=== PATIENT | female | born 1995 | race Caucasian/White ===

== ENCOUNTER 2017-09-25 20:05 | Emergency (ER) | payer OTHER ==
[2017-09-25 20:47] VITALS: BP 118/85
--- NOTE | 2017-09-25 21:34 | UC ---
Skin Complaint HPI - HPI Summary HPI Summary: Patient presents with complaints of sore throat last night, which has resolved, followed by a rash on her face, and not it is spreading to her arms, and truck. she states she took beanery and the rash improved, and when the Benadryl wore off the rash came back. She denies any difficulty breathing, speaking or swallowing. She denies any fever, chills, chest or abdominal pain, nausea, vomiting, or diarrhea. - History of Current Complaint Hx Obtained From: Patient Hx Last Menstrual Period: <1 WEEK AGO Onset/Duration: Sudden Onset Skin Exposure Onset/Duration: Hours Ago Onset Severity: Mild Current Severity: Mild Pain Intensity: 0 Location: Diffuse, Face, Other - fore arms, back and trunk Character: Pruritus Aggravating Factor(s): Showering, Touch Alleviating Factor(s): Nothing Associated Signs & Symptoms: Positive: Rash <Radha Escobar - Last Filed: 09/25/17 21:57> <Monique Resendiz - Last Filed: 09/25/17 23:16> - History of Current Complaint Chief Complaint: UCSkin Time Seen by Provider: 09/25/17 21:21 Stated Complaint: HIVES - Allergy/Home Medications Allergies/Adverse Reactions: Allergies Allergy/AdvReac Type Severity Reaction Status Date / Time MS Escitalopram Allergy Unknown Verified 09/25/17 20:47 [From Lexapro] Reaction Details Home Medications: Home Medications Diphenhydramine HCl [Benadryl Allergy Child 12.5 MG/5 ML LIQ] 2.5 tbsp PO PRN [History] Nuvaring* 09/25/17 [History] Review of Systems Constitutional: Negative Skin: Rash Eyes: Negative ENT: Negative Respiratory: Negative Cardiovascular: Negative Gastrointestinal: Negative Genitourinary: Negative Motor: Negative Neurovascular: Negative Musculoskeletal: Negative Neurological: Negative Psychological: Negative Is Patient Immunocompromised?: No All Other Systems Reviewed And Are Negative: Yes <Radha Escobar - Last Filed: 09/25/17 21:57> PMH/Surg Hx/FS Hx/Imm Hx Previously Healthy: Yes - Surgical History Surgical History: None - Family History Known Family History: Positive: None Family History: R & n/C - Social History Occupation: Student Lives: With Family Alcohol Use: Occasionally Substance Use Type: None Smoking Status (MU): Never Smoked Tobacco - Immunization History Vaccination Up to Date: Yes <Radha Escobar - Last Filed: 09/25/17 21:57> Physical Exam Triage Information Reviewed: Yes Appearance: Well-Appearing Vital Signs: Initial Vital Signs Temp 98.4 F 09/25/17 20:43 Pulse 83 09/25/17 20:43 Resp 16 09/25/17 20:43 BP 118/85 09/25/17 20:43 Pulse Ox 99 09/25/17 20:43 Vital Signs Reviewed: Yes Eye Exam: Normal ENT Exam: Normal Neck exam: Normal Neck: Positive: 1 Respiratory Exam: Normal Cardiovascular Exam: Normal Abdominal Exam: Normal Musculoskeletal Exam: Normal Neurological Exam: Normal Psychological Exam: Normal Skin Exam: Normal, Other - rough rash lace like in appearance, blanchable. no vesicles on face, forearms, to lesser degree on trunk and back. <Radha Escobar - Last Filed: 09/25/17 21:57> Vital Signs: Initial Vital Signs Temp 98.4 F 09/25/17 20:43 Pulse 83 09/25/17 20:43 Resp 16 09/25/17 20:43 BP 118/85 09/25/17 20:43 Pulse Ox 99 09/25/17 20:43 <Monique Resendiz - Last Filed: 09/25/17 23:16> Course/Dx - Course Course Of Treatment: Patient presents with a rash that developed one day after a sore throat. Rapid strep was negative. I feel based on the clinical presentation that the rash is most likely due to viral exanthum. I gave the patient prednisone 20 mg by mouth in the clinic, and RX prednisone 20 mg by mouth twice daily for five days. If the rash does not imrpove as anticpated she was told to follow up with her PCP. She verbalized understanding of and was in agreement with the discharge plan. - Differential Diagnoses - Skin Complaint Differential Diagnoses: Other - viral exanthum - Diagnoses Provider Diagnoses: viral exanthum <Radha Escobar - Last Filed: 09/25/17 21:57> Discharge <Radha Escobar - Last Filed: 09/25/17 21:57> <Monique Resendiz - Last Filed: 09/25/17 23:16> - Discharge Plan Condition: Stable Disposition: HOME Prescriptions: predniSONE TAB* [Deltasone TAB*] 20 mg PO BID #10 tab Patient Education Materials: Viral Exanthem (ED) Referrals: Prerna Suggs MD [Primary Care Provider] - Attestation Statement User Type: Provider - I was available for consult. This patient was seen by the MARISSA. The patient was not presented to, seen by, or examined by me. -Stephany <Monique Resendiz - Last Filed: 09/25/17 23:16>
[2017-09-25] MEDS ORDERED: predniSONE TAB* 20 MG PO ONE (22:05)
== END 2017-09-25 22:10 | disposition home or self-care (01) ==
LOC: UCEAST 20:05
DX: B09 Unspecified viral infection characterized by skin and mucous membrane lesions (principal)
CPT/HCPCS: 87651; 99212; G0463; J7512

== ENCOUNTER 2017-10-06 13:33 | Emergency (ER) | payer OTHER ==
[2017-10-06 16:14] VITALS: BP 103/74
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
== END 2017-10-06 16:44 | disposition home or self-care (01) ==
LOC: UCEAST 13:33
DX: L25.9 Unspecified contact dermatitis, unspecified cause (principal); Z88.8 Allergy status to other drugs, medicaments and biological substances
CPT/HCPCS: 99212; G0463

== ENCOUNTER 2017-11-06 09:24 | Emergency (ER) | payer OTHER ==
[2017-11-06 09:43] VITALS: BP 101/66
--- NOTE | 2017-11-06 10:12 | UC ---
Throat Pain/Nasal Maurice HPI - HPI Summary HPI Summary: Pt presents with sore throat and post nasal drip that began yesterday. Has also had some sinus congestion. Says that she gets strep throat every year and this feels the same. Is able to eat, drink, and swallow without difficulties. Denies fever, chills, SOB, chest pain, abdominal pain. - History of Current Complaint Hx Obtained From: Patient Hx Last Menstrual Period: 2 WEEKS AGO Onset/Duration: Sudden Onset Severity: Moderate Pain Intensity: 5 Pain Scale Used: 0-10 Numeric <Eddie Christopher - Last Filed: 11/06/17 10:53> <Ijeoma Dove - Last Filed: 11/06/17 15:19> - History of Current Complaint Chief Complaint: UCDizziness Stated Complaint: DIZZINESS Time Seen by Provider: 11/06/17 10:03 - Allergies/Home Medications Allergies/Adverse Reactions: Allergies Allergy/AdvReac Type Severity Reaction Status Date / Time escitalopram [From Lexapro] Allergy Unknown Verified 11/06/17 09:43 Reaction Details Home Medications: Home Medications Dm/Acetaminophen/Doxylamine [Vicks Nyquil Cold & Flu N 15-6.25-325 mg] 1 cap PO 11/06/17 [History] LoraTADine TAB(NF) [Claritin 10 MG TAB(NF)] 10 mg PO DAILY 11/06/17 [History Confirmed 11/06/17] PMH/Surg Hx/FS Hx/Imm Hx - Additional Past Medical History Additional PMH: Allergies Previously Healthy: Yes - Surgical History Surgical History: None - Family History Known Family History: Positive: None Negative: Hypertension Family History: R & n/C - Social History Occupation: Employed Full-time Lives: With Family Alcohol Use: Occasionally Substance Use Type: None Smoking Status (MU): Never Smoked Tobacco - Immunization History Vaccination Up to Date: Yes <Eddie Christopher - Last Filed: 11/06/17 10:53> Review of Systems Constitutional: Negative Skin: Negative Eyes: Negative ENT: Sore Throat, Nasal Discharge Respiratory: Negative Cardiovascular: Negative Gastrointestinal: Negative Neurological: Negative Psychological: Negative All Other Systems Reviewed And Are Negative: Yes <Eddie Christopher - Last Filed: 11/06/17 10:53> Physical Exam - Summary Physical Exam Summary: GENERAL: NAD. WDWN. No pain distress. SKIN: No rashes, sores, ulcers, masses, lesions. HEENT: Head: AT/NC Eyes: Conjunctiva clear without inflammation or discharge. Ears: Hearing grossly normal. TMs intact, no bulging, erythema, or edema. Nose: Nasal mucosa pink and moist. NTTP maxillary and frontal sinus. Throat: Posterior oropharynx mild erythema. No tonsillar enlargement. No exudates. Uvula midline. No hoarse voice or muffled voice. NECK: Supple. Nontender. No lymphadenopathy. CHEST: CTAB. No r/r/w. No accessory muscle use. Breathing comfortably and in no distress. CV: RRR. Without m/r/g. Pulses intact. Brisk cap refill. NEURO: Alert. CN II-XII grossly intact. PSYCH: Age appropriate behavior. Triage Information Reviewed: Yes Vital Signs: Initial Vital Signs Temp 98.7 F 11/06/17 09:37 Pulse 86 11/06/17 09:37 Resp 18 11/06/17 09:37 BP 101/66 11/06/17 09:37 Pulse Ox 99 11/06/17 09:37 <Eddie Christopher - Last Filed: 11/06/17 10:53> Vital Signs: Initial Vital Signs Temp 98.7 F 11/06/17 09:37 Pulse 86 11/06/17 09:37 Resp 18 11/06/17 09:37 BP 101/66 11/06/17 09:37 Pulse Ox 99 11/06/17 09:37 <Ijeoma Dove - Last Filed: 11/06/17 15:19> Throat Pain/Nasal Course/Dx - Course Course Of Treatment: POC strep negative. Suspect viral pharyngitis vs post nasal drip. Advised rest and fluids. OTC claritin and mucinex - Differential Dx/Diagnosis Provider Diagnoses: Viral pharyngitis <Eddie Christopher - Last Filed: 11/06/17 10:53> Discharge <Eddie Christopher - Last Filed: 11/06/17 10:53> <Ijeoma Dove - Last Filed: 11/06/17 15:19> - Discharge Plan Condition: Stable Disposition: HOME Patient Education Materials: Pharyngitis (ED) Referrals: Prerna Suggs MD [Primary Care Provider] - Additional Instructions: If you develop a fever, shortness of breath, chest pain, new or worsening symptoms - please call your PCP or go to the ED.
== END 2017-11-06 10:20 | disposition home or self-care (01) ==
LOC: UCEAST 09:24
DX: J02.8 Acute pharyngitis due to other specified organisms (principal); R09.81 Nasal congestion; Z88.8 Allergy status to other drugs, medicaments and biological substances
CPT/HCPCS: 87651; 99211; G0463

== ENCOUNTER 2018-05-07 15:09 | Emergency (ER) | payer SELFPAY ==
--- NOTE | 2018-05-07 17:33 | RAD ---
Indication: Dizziness, headaches and blurred vision. CT of the brain was performed without IV contrast. Ventricular structures are midline. No midline shift is noted. The extra-axial spaces are unremarkable. There is no evidence of intracranial mass or hemorrhage. No other high or low density lesions are identified. Mastoid air cells and paranasal sinuses are otherwise unremarkable. IMPRESSION: No intracranial mass or hemorrhage is noted.
[2018-05-07] MEDS ORDERED: Acetaminophen TAB* 325 MG PO ONE (17:46)
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
[2018-05-07 17:59] VITALS: BP 127/78
== END 2018-05-07 17:58 | disposition home or self-care (01) ==
LOC: ED 15:09
DX: S06.0X9A Concussion with loss of consciousness of unspecified duration, initial encounter (principal); R51 Headache; H53.8 Other visual disturbances; R42 Dizziness and giddiness; W22.8XXA Striking against or struck by other objects, initial encounter; Y92.9 Unspecified place or not applicable
CPT/HCPCS: 70450; 99282; A9270-GY

== ENCOUNTER 2018-06-29 15:06 | Emergency (ER) | payer OTHER ==
[2018-06-29 15:14] VITALS: BP 122/74
--- NOTE | 2018-06-29 17:16 | ED ---
Throat Pain/Nasal Congestion - HPI Summary HPI Summary: Patient presents with multiple apthous ulcers 2 weeks. She states she has had this in the past, but this is the worst that it has been. Endorses pain of 10/ 10, constant and burning, worse with eating or drinking, better with nothing. She has tried OTC medications without good relief. She has not tried any special mouthwashes or anything else [id number] otherwise. She states she has been otherwise healthy, denies any fevers, sweats, chills. Denies any open sores to the outer area of the mouth around the lips or otherwise. - History of Current Complaint Chief Complaint: EDDentalPain Time Seen by Provider: 06/29/18 15:19 Hx Obtained From: Patient Onset/Duration: Sudden Onset Severity: Severe Associated Signs And Symptoms: Positive: Negative - Epiglottits Risk Factors Epiglottis Risk Factors: Negative - Allergies/Home Medications Allergies/Adverse Reactions: Allergies Allergy/AdvReac Type Severity Reaction Status Date / Time escitalopram [From Lexapro] Allergy Unknown Verified 06/29/18 15:11 Reaction Details PMH/Surg Hx/FS Hx/Imm Hx Previously Healthy: Yes Endocrine/Hematology History: Denies: Hx Anticoagulant Therapy, Hx Diabetes, Hx Thyroid Disease Cardiovascular History: Denies: Hx Cardiac Arrest, Hx Hypertension, Hx Pacemaker/ICD Respiratory History: Denies: Hx Asthma, Hx Chronic Obstructive Pulmonary Disease (COPD) GI History: Denies: Hx Cirrhosis, Hx Ulcer History: Denies: Hx Dialysis Sensory History: Denies: Hx Hearing Aid Neurological History: Denies: Hx CVA Psychiatric History: Denies: Hx Panic Disorder - Immunization History Hx Pertussis Vaccination: No Immunizations Up to Date: Yes Infectious Disease History: No Infectious Disease History: Denies: Hx Hepatitis, Hx Human Immunodeficiency Virus (HIV), History Other Infectious Disease, Traveled Outside the [place] in Last 30 Days - Family History Known Family History: Positive: None Negative: Hypertension Family History: R & n/C - Social History Occupation: Unemployed - L Lives: With Family Alcohol Use: Occasionally Hx Substance Use: No Substance Use Type: Reports: None Hx Tobacco Use: No Smoking Status (MU): Never Smoked Tobacco Review of Systems Negative: Fever, Chills, Fatigue, Skin Diaphoresis Positive: Dental Pain Negative: Palpitations, Chest Pain Negative: Shortness Of Breath, Cough Genitourinary: Negative Positive: no symptoms reported, see HPI Negative: Arthralgia, Myalgia Skin: Negative Neurological: Negative All Other Systems Reviewed And Are Negative: Yes Physical Exam Triage Information Reviewed: Yes Vital Signs On Initial Exam: Initial Vitals Temp Pulse Resp BP Pulse Ox 98.3 F 67 14 122/74 99 06/29/18 15:12 06/29/18 15:12 06/29/18 15:12 06/29/18 15:12 06/29/18 15:12 Vital Signs Reviewed: Yes Appearance: Positive: Well-Appearing, Well-Nourished - 4 Skin: Positive: Skin Color Reflects Adequate Perfusion Head/Face: Positive: Normal Head/Face Inspection Eyes: Positive: EOMI, ZANE, Conjunctiva Clear Dental: Positive: Other - 2 apthous ulcers to the lower lip and 1 to the left cheek Neck: Positive: Supple Respiratory/Lung Sounds: Positive: Clear to Auscultation, Breath Sounds Present Cardiovascular: Positive: RRR, Pulses are Symmetrical in both Upper and Lower Extremities Musculoskeletal: Positive: Strength/ROM Intact Neurological: Positive: Speech Normal Psychiatric: Positive: Affect/Mood Appropriate Diagnostics - Vital Signs Vital Signs Temp Pulse Resp BP Pulse Ox 06/29/18 16:19 98.3 F 68 16 122/74 98 06/29/18 15:12 98.3 F 67 14 122/74 99 - Laboratory Lab Statement: Any lab studies that have been ordered have been reviewed, and results considered in the medical decision making process. EENT Course/Dx - Course Course Of Treatment: On physical examination, there are 2 large aphthous ulcers to the bottom lower lip and to the left side of the cheek. She states she is feeling otherwise well, however endorses 10/10 pain. Discussed treatment options. Patient would like to proceed with prednisone, Magic mouthwash, tramadol for pain control and 5 days Acyclovir. - Diagnoses Provider Diagnoses: Aphthous ulcer Discharge - Sign-Out/Discharge Documenting (check all that apply): Patient Departure - Discharge Plan Condition: Stable Disposition: HOME Prescriptions: Acyclovir* [Zovirax 400 MG TAB*] 400 mg PO 5ID #25 tab Magic Mouth Was-LEAH/MAAL/LIDO* 5 ml SWISH SPIT QID #100 ml predniSONE TAB* [Deltasone TAB*] 50 mg PO DAILY #5 tab MDD 1 traMADol TAB* [Ultram*] 50 mg PO Q8H PRN #6 tab MDD 3 PRN Reason: Pain Patient Education Materials: Deann Beth (ED) Referrals: Prerna Suggs MD [Primary Care Provider] - Additional Instructions: Prednisone once daily in the morning 5 days Magic mouthwash, 1 teaspoon 4 times daily, swish and spit, keep in the mouth for approximately 2 minutes Acyclovir 400 mg 5 times daily 5 days Tramadol up to 3 times daily for pain, do not drive with this medication - Billing Disposition and Condition Condition: STABLE Disposition: Home
== END 2018-06-29 16:19 | disposition home or self-care (01) ==
LOC: ED 15:06
DX: K12.0 Recurrent oral aphthae (principal); Z88.8 Allergy status to other drugs, medicaments and biological substances
CPT/HCPCS: 99282

== ENCOUNTER 2018-07-07 10:19 | Emergency (ER) | payer OTHER ==
[2018-07-07] MEDS ORDERED: Famotidine TAB* 20 MG PO ONE (10:40)
[2018-07-07] MEDS ORDERED: Lidocaine 2% VISCOUS* 15 ML UDC PO ONE (10:41)
[2018-07-07] MEDS ORDERED: Al Hydrox/Mg Hydrox/Simet LIQ* 30 ML UDC PO ONE (10:41)
--- OUTSIDE RECORDS SUMMARY | 2018-07-07 10:57 | XMS REPORT ---
:1995 External Reference #:[id number] Author Organization [employer] Address [address] [place] [address] [place] [address] Phone [phone] Care Team Providers Name Role Phone Prerna Suggs MD Primary Care Physician Unavailable Payers Type Date Identification Numbers Payment Provider Subscriber Commercial Effective: Policy Number: [id number] [employer] Jesse White Becky 2005 PayID: [id number] [address] [place] [address] Problems Date Description Provider Status Onset: Tension-type headache Active Onset: 06/11/2017 Adjustment disorder with mixed Prerna Suggs M.D. 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 [employer] Cigarette Use Never Smoked Cigarettes ETOH Use Never used alcohol Smoking Patient has never smoked Recreational Drug Use Denies Drug Use Exercise Type/Frequency Exercises regularly Exercise Type/Frequency run, work out Sexual Hx text yes, monogamous 1 partner Allergies, Adverse Reactions, Alerts Date Description Reaction Status Severity Comments 11/13/2015 Lexapro active hives 12/18/2013 NKDA inactive Medications Medication Date Status Form Strength Qnty SIG Indications Ordering Provider Nuvaring / Active Ring 0.12-0.01 insert 1 Unknown 0000 5mg/24HR ring vaginally every [address] for 3 weeks , remove and replace with a new ring after a 7 day break Clobetasol / Active Cream 0.05% apply To Unknown Propionate 0000 Hands And Feet twice a day prn for eczema Dr. Batres Venlafaxine HCL 11/17/ Hx Tablets 37.5mg 49tab 1 tab po for F43.23 Bettie 2015 - s 7 days, then Carlin 11/24/ increase to M.D. 2016 2 tabs po per day for 3 weeks Lexapro 11/01/ Hx Tablets 10mg 30tab 1 by mouth F43.23 Bettie 2015 - s every day Carlin 11/12/ M.D. 2016 Amoxicillin 04/16/ Hx Capsules 500mg 20cap 1 by mouth 462 Bettie 2013 - twice a day Carlin M.Melida 2015 Emoquette / Hx Tablets 0.15-30mg 1mont 1 by mouth Justino 0000 - -mcg h every day Lizika M.DAbi 2017 Metoclopramide / Hx Tablets 10mg take 1 Unknown HCL 0000 - tablet by 02/12/ mouth every 2018 day as needed with a Benadyrl Ibuprofen / Hx Tablets 400mg by mouth Unknown 0000 - every 4 to 6 02/12/ hours as 2018 needed Benadryl Allergy / Hx Capsules 25mg one tab prn Unknown 0000 - 2017 Medications Administered in Office Medication Date Status Form Strength Qnty SIG Indications Ordering Provider PPD Administered Injection Tiana Layton OPS ANALYST PPD Administered Injection Nurse Visit 7 C PPD Administered Injection Nurse Visit 5 C PPD Administered Injection Nurse Visit 4 C Immunizations CPT Code Status Date Vaccine Lot # [id number] Given 05/13/2018 Influenza Virus Vaccine, Quadrivalent, Split, [id number] Preservative Free 04407 Given 06/10/2013 Flu Mist Vaccine, Live For Intranasal Use 44193 Given 11/08/2007 Gardasil (HPV) 95552 Given 11/08/2007 Hepatitis A Vaccine Adult Dosage 25420 Given 07/01/2007 Gardasil (HPV) 67292 Given 04/30/2007 Meningitis MCV4 MenACWY Meningococcal Conjugate Vaccine 88161 Given 04/30/2007 Gardasil (HPV) 85642 Given 04/30/2007 Hepatitis A Vaccine Adult Dosage 08783 Given 11/22/1999 DTaP Vaccine Younger Than 7 68144 Given 11/22/1999 Measles Mumps And Rubella MMR 44551 Given 11/22/1999 Varicella (Chicken Pox) Immunization 51404 Given 12/18/1996 Measles Mumps And Rubella MMR 57621 Given 03/13/1996 Hep B Pediatric/Adolescent 71854 Given 03/13/1996 DTaP Vaccine Younger Than 7 02016 Given 01/01/1996 Hep B Pediatric/Adolescent 53741 Given 01/01/1996 DTaP Vaccine Younger Than 7 12761 Given 1995 Hep B Pediatric/Adolescent 91340 Given 1995 DTaP Vaccine Younger Than 7 Vital Signs Date Vital Result Comment 06/28/2018 Height 63.5 inches 5'3.50" Weight 145.00 lb Heart Rate 67 /min BP Systolic Sitting 116 mmHg BP Diastolic Sitting 60 mmHg Body Temperature 97.9 F O2 % BldC Oximetry 98 % BMI (Body Mass Index) 25.3 kg/m2 05/13/2018 Height 63.5 inches 5'3.50" Weight 141.38 lb Heart Rate 83 /min BP Systolic Sitting 110 mmHg BP Diastolic Sitting 72 mmHg O2 % BldC Oximetry 97 % BMI (Body Mass Index) 24.6 kg/m2 02/12/2018 Height 63.5 inches 5'3.50" Weight 146.00 lb Heart Rate 65 /min BP Systolic Sitting 98 mmHg BP Diastolic Sitting 58 mmHg O2 % BldC Oximetry 97 % BMI (Body Mass Index) 25.5 kg/m2 06/11/2017 Weight 141.50 lb Heart Rate 70 /min BP Systolic Sitting 98 mmHg BP Diastolic Sitting 72 mmHg Body Temperature 97.4 F O2 % BldC Oximetry 96 % 11/26/2015 Weight 141.00 lb Heart Rate 88 /min BP Systolic Sitting 90 mmHg BP Diastolic Sitting 62 mmHg Body Temperature 97.8 F O2 % BldC Oximetry 98 % 11/18/2015 Weight 142.50 lb Heart Rate 63 /min BP Systolic Sitting 104 mmHg BP Diastolic Sitting 71 mmHg O2 % BldC Oximetry 99 % 11/02/2015 Height 63.5 inches 5'3.50" Weight 144.00 lb Heart Rate 91 /min BP Systolic 100 mmHg BP Diastolic 66 mmHg Body Temperature 98.3 F O2 % BldC Oximetry 97 % BMI (Body Mass Index) 25.1 kg/m2 03/05/2015 Height 63.5 inches 5'3.50" Weight 138.00 lb Heart Rate 97 /min BP Systolic Sitting 102 mmHg BP Diastolic Sitting 60 mmHg Body Temperature 98.5 F O2 % BldC Oximetry 98 % BMI (Body Mass Index) 24.1 kg/m2 11/05/2014 Height 63.5 inches 5'3.50" Weight 133.00 lb Heart Rate 86 /min BP Systolic 110 mmHg BP Diastolic 71 mmHg Body Temperature 98.1 F BMI (Body Mass Index) 23.2 kg/m2 09/10/2014 Weight 136.00 lb Heart Rate 80 /min BP Systolic Sitting 102 mmHg BP Diastolic Sitting 72 mmHg Body Temperature 98.2 F 04/16/2014 Weight 131.00 lb Heart Rate 130 /min BP Systolic Sitting 110 mmHg BP Diastolic Sitting 60 mmHg Body Temperature 99.5 F Blood Pressure Percentile 0 % Weight Percentile 60th 12/18/2013 Height 62.75 inches 5'2.75" Weight 133.00 lb Heart Rate 77 /min BP Systolic Sitting 106 mmHg BP Diastolic Sitting 73 mmHg BMI (Body Mass Index) 23.7 kg/m2 Blood Pressure Percentile 0 % Height Percentile 27 % Weight Percentile 64th Results Test Date Test Result H/L Range Note Ua Routine 02/12/2018 Ua Specific [place] 1.015 Ua PH 5 Ua Color yellow Ua Appera clear Ua WBC - Ua Protein - Ua Glucose norm Ua Ketones - Ua Bilirubin - Ua Urobilinogen norm Ua Nitrite - Ua Occult Blood - Laboratory test finding 11/06/2017 Rapid Strep Molecular Negative Negative 1 Laboratory test finding 09/25/2017 Rapid Strep Molecular Negative Negative 2 Laboratory test finding 11/22/2015 Magnesium 2.2 mg/dL 1.9-2.7 Creatine Kinase(CK) 21 U/L 10-223 Monospot Negative Negative Comp Metabolic Panel 11/22/2015 Sodium 134 mmol/L 133-145 Chloride 103 mmol/L 101-111 Co2 Carbon Dioxide 25 mmol/L 22-32 Glucose 93 mg/dL 70-100 Blood Urea Nitrogen 10 mg/dL 6-24 Creatinine 0.75 mg/dL 0.51-0.95 BUN/Creatinine Ratio 13.3 8-20 Calcium 9.2 mg/dL 8.6-10.3 Total Protein 7.4 g/dL 6.4-8.9 Albumin 3.9 g/dL 3.2-5.2 Globulin 3.5 g/dL 2-4 Albumin/Globulin Ratio 1.1 1-3 Total Bilirubin 0.40 mg/dL 0.2-1.0 Alkaline Phosphatase 58 U/L 34-104 Alt 8 U/L 7-52 Egfr Non- 98.5 >60 Egfr 126.7 >60 3 Potassium 4.5 mmol/L 3.5-5.0 Anion Gap 6 mmol/L 2-11 Ast 15 U/L 13-39 CBC Auto Diff 11/22/2015 White Blood Count 7.3 10^3/uL 3.5-10.8 Red Blood Count 4.96 10^6/uL 4.0-5.4 Hemoglobin 13.6 g/dL 12.0-16.0 Hematocrit 41 % 35-47 Mean Corpuscular Volume 83 fL 80-97 Mean Corpuscular Hemoglobin 27 pg 27-31 Mean Corpuscular HGB Conc 33 g/dL 31-36 Red Cell Distribution Width 15 % 10.5-15 Platelet Count 208 10^3/uL 150-450 Mean Platelet Volume 9 um3 7.4-10.4 Abs Neutrophils 5.6 10^3/uL 1.5-7.7 Abs Lymphocytes 0.8 10^3/uL Low 1.0-4.8 Abs Monocytes 0.7 10^3/uL 0-0.8 Abs Eosinophils 0.1 10^3/uL 0-0.6 Abs Basophils 0 10^3/uL 0-0.2 Abs Nucleated RBC 0 10^3/uL Granulocyte % 77.4 % 38-83 Lymphocyte % 11.0 % Low 25-47 Monocyte % 9.5 % High 1-9 Eosinophil % 1.9 % 0-6 Basophil % 0.2 % 0-2 Nucleated Red Blood Cells % 0 Urinalysis Profile 11/22/2015 Urine Color Yellow Urine Appearance Clear Urine Specific [place] 1.025 1.010-1.030 Urine pH 6.0 5-9 Urine Urobilinogen Negative Negative Urine Ketones Negative Negative Urine Protein Negative Negative Urine Leukocytes Negative Negative Urine Blood 1+ Negative Urine Nitrite Negative Negative Urine Bilirubin Negative Negative Urine Glucose Negative Negative Urine White Blood Cell Absent Absent Urine Red Blood Cell 3+(>10/hpf) Absent Urine Bacteria Absent Absent Urine Squamous Epithelial Cell Present Absent Laboratory test finding 11/22/2015 Rapid Strep A SEE RESULT BELOW 4 Rapid Influenza A B Antigen SEE RESULT BELOW 5 Rapid Influenza A & B 11/22/2015 Influenza A Molecular NEGATIVE Negative 6 Molecular Influenza B Molecular NEGATIVE Negative Laboratory test finding 11/22/2015 Rapid Strep Molecular POSITIVE Negative 7 Varicella Zoster Igg AB 03/08/2015 Varicella-Zoster IgG Positive 8 Antibody Varicella IgG Antibody Index 2.9 9 Lipid Profile (Trig/Chol/HDL) 12/05/2014 Triglycerides 157 mg/dL 10, 11 Cholesterol 141 mg/dL 10, 12 HDL Cholesterol 60.1 mg/dL 10, 13 LDL Cholesterol 50 mg/dL 10, 14 Laboratory test finding 12/05/2014 Glucose 96 mg/dL 70-100 10, 15 Ua Routine 09/10/2014 Ua Specific [place] 1.005 Ua PH 7.5 Ua Color lt. yellow Ua Appera clear Ua WBC neg Ua Protein neg Ua Glucose neg Ua Ketones neg Ua Bilirubin neg Ua Urobilinogen normal Ua Nitrite neg Ua Occult Blood neg Laboratory test finding 04/16/2014 Throat Culture (SEE NOTE) 16 Ua Routine 01/05/2014 Ua Specific [place] 1.015 Ua PH 5 Ua Color yellow Ua Appera clear Ua WBC neg Ua Protein trace Ua Glucose neg Ua Ketones neg Ua Bilirubin neg Ua Urobilinogen neg Ua Nitrite neg Ua Occult Blood neg 1 Investment Banking Manager: [id number] 2 Investment Banking Manager: [id number] 3 Because ethnic data is not always readily available, this report includes an eGFR for both -Americans and non- Americans. The National Kidney Disease Education Program (NKDEP) does not endorse the use of the MDRD equation for patients that are not between the ages of 18 and 70, are , have extremes of body size, muscle mass, or nutritional status, or are non- or non-. According to the National Kidney Foundation, irrespective of diagnosis, the stage of the disease is based on the level of kidney function: Stage Description GFR(mL/min/1.73 m(2)) 1 Kidney damage with normal or decreased GFR 90 2 Kidney damage with mild decrease in GFR 60-89 3 Moderate decrease in GFR 30-59 4 Severe decrease in GFR 15-29 5 Kidney failure <15 (or dialysis) 4 SEE RESULT BELOW Name: BECKYENRIQUETA Fritz : [address]: Monique Resendiz MD Acct: [id number] Unit: [id number] AGE: 20 Location: ED Re11/22/15 SEX: F Status: REG ER SPEC: [id number] MO: 11/22/15 [facility] DR: Monique Resendiz MD REQ: [id number] RECD: 11/22/15 STATUS: TK CARRERA DR: Bettie Gillis MD _ SOURCE: THROAT SPDESC: ORDERED: Strep A Request Procedure Result Reported Site Rapid Strep A Request Final 11/22/152234 ML Specimen received for Rapid Strep A Molecular testing * ML - MAIN LAB ([facility]) . END OF REPORT * ML=Testing performed at Main Lab DEPARTMENT OF PATHOLOGY, [address] [place] [address] Nasir Madrigal M.D. Director [facility] # [id number] 5 SEE RESULT BELOW Name: ENRIQUETA HUERTA : [address]: Monique Resendiz MD Acct: [id number] Unit: [id number] AGE: 20 Location: ED Re11/22/15 SEX: F Status: REG ER SPEC: [id number] MO: 11/22/[address]: Monique Resendiz MD REQ: [id number] RECD: 11/22/15 STATUS: TK CARRERA DR: Bettie Gillis MD _ SOURCE: NASAL SPDESC: ORDERED: Flu A B Request Procedure Result Reported Site Rapid Influenza A B Request Final 11/22/15- 2235 ML Specimen received for Influenza A/B Molecular testing * ML - MAIN LAB ([facility]) . END OF REPORT * ML=Testing performed at Main Lab DEPARTMENT OF PATHOLOGY, [address] [place] [address] Nasir Madrigal M.D. Director [facility] # [id number] 6 Investment Banking Manager: ATTILA MOTA 7 Investment Banking Manager: ATTILA MOTA Due to the increased sensitivity of molecular testing, reflex cultures are no longer performed. 8 Results suggest response to immunization or prior exposure to the virus. REFERENCE VALUE Vaccinated: Positive (>=1.1 AI) Unvaccinated: Negative (<=0.8 AI) 9 Test Performed by: [address] [address] Concrete Laborer: Curry Norman II, M.D., Ph.D. 10 PT IS FASTING 11 Desirable <150 Borderline high 150-199 High 200-499 Very High >500 12 Desirable <200 Borderline high 200-239 High >239 13 Low <40 Desirable: 40-60 High: >60 14 Desirable: <100 mg/dL Near Optimal: 100-129 mg/dL Borderline High: 130-159 mg/dL High: 160-189 mg/dL Very High: >189 mg/dL 15 PT IS FASTING 16 RUN DATE: 04/18/14 [facility] LAB LIVE PAGE 1 RUN TIME: [address] [place] [address] Specimen Inquiry Name: ENRIQUETA HUERTA : [address]: Bettie Gillis MD Acct: [id number] Unit: [id number] AGE: 18 Location: [facility] Re04/16/14 SEX: F Status: REG REF SPEC: [id number] MO: 04/16/14-1002 [facility] DR: Bettie Gillis MD REQ: [id number] RECD: 04/16/14 STATUS: COMP _ SOURCE: THROAT SPDESC: ORDERED: Throat Culture QUERIES: Medent Number [id number] Procedure Result Verified Site Throat Culture Final 04/18/14- 1150 ML Organism 1 NORMAL ALBAN Quantity 3+ END OF REPORT * ML=Testing performed at Main Lab DEPARTMENT OF PATHOLOGY, [address] [place] [address] Nasir Madrigal M.D. Director [facility] # [id number] Procedures Description No Information Encounters Type Date Location Provider CPT E/M Dx Office Visit 05/13/2018 [facility] Internal Markie Schulz, [address]291 S06.0x0A 4:00p Medicine - [place] Z23 Office Visit 02/12/2018 8:30a [facility] Medicine Prerna Suggs, 83150 N39.41 - [place] Office Visit 06/11/2017 1:40p [facility] Medicine Prerna Suggs, 52973 G44.209 - [place] F43.21 Office Visit 11/26/2015 2:40p [facility] Medicine Bettie Gillis M.D. 66985 F43.23 - [place] J02.0 Office Visit 11/18/2015 3:20p [facility] Medicine Bettie Gillis M.D. 44638 F43.23 - [place] Office Visit 11/02/2015 10:00a [facility] Medicine Bettie Gillis M.D. 20742 F43.23 - [place] Office Visit 03/05/2015 3:00p [facility] Medicine Bettie Gillis M.D. 01587 V70.0 - [place] Office Visit 11/05/2014 7:40a [facility] Medicine Bettie Gillis M.D. 31729 847.0 - [place] 842.09 844.9 719.43 719.46 728.85 Office Visit 09/10/2014 12:40p [facility] Medicine Bettie Gillis M.D. 09884 558.9 - [place] 847.0 728.85 Office Visit 04/16/2014 9:40a [facility] Medicine Bettie Gillis M.D. 08731 462 - [place] Office Visit 12/18/2013 3:00p [facility] Bettie Gillis M.D. 54567 V70.0 - [place] Plan of Care 06/28/2018 - Justino Brown M.D.K12.0 Recurrent oral aphthaeComments:If not improving will obtain labs . Try local aspirin.Start multivitamin once a day.
--- NOTE | 2018-07-07 11:11 | ED ---
HPI Chest Pain - HPI Summary HPI Summary: Pt is a 22 y/o female who presents to the ED c/o CP. She was here 2 weeks ago for mouth ulcerations, mainly located on her bottom gums. Pt was put on 5 days of Prednisone and Acyclovir, and finished the medications a few days ago. Since then, she hasnt been feeling right. This morning she woke up at 4:00 with extreme pressure underneath her sternum. Pt felt like vomiting would alleviate the pain, but she couldnt vomit. She woke up again at 6:00, and ate some bread and drank water. Pt again fell asleep but woke up at 8:45 with the same pain. She states shes taken Prednisone before without any side effects, but this is the first time shes taken Acyclovir. Pt denies any abdominal pain, bloody stool , or arthritis. She took Ibuprofen yesterday for a headache. LNMP 1 day ago, and she denies any possible . - History of Current Complaint Chief Complaint: EDGeneral Time Seen by Provider: 07/07/18 10:33 Hx Obtained From: Patient Hx Last Menstrual Period: 2 WEEKS AGO Onset/Duration: Started Hours Ago - 4:00 this morning, Still Present Timing: Constant Current Severity: Moderate Pain Intensity: 3 Pain Scale Used: 0-10 Numeric Chest Pain Location: Discrete at: - sub-sternal Chest Pain Radiates: No Character: Pressure/Squeezing Alleviating Factor(s): Upright Position Associated Signs and Symptoms: Positive: Chest Pain, Nausea. Negative: Abdominal Pain - Allergy/Home Medications Allergies/Adverse Reactions: Allergies Allergy/AdvReac Type Severity Reaction Status Date / Time escitalopram [From Lexapro] Allergy Unknown Verified 06/29/18 15:11 Reaction Details PMH/Surg Hx/FS Hx/Imm Hx Endocrine/Hematology History: Denies: Hx Anticoagulant Therapy, Hx Diabetes, Hx Thyroid Disease Cardiovascular History: Denies: Hx Cardiac Arrest, Hx Hypertension, Hx Pacemaker/ICD Respiratory History: Denies: Hx Asthma, Hx Chronic Obstructive Pulmonary Disease (COPD) GI History: Denies: Hx Cirrhosis, Hx Ulcer History: Denies: Hx Dialysis Sensory History: Denies: Hx Hearing Aid Neurological History: Denies: Hx CVA Psychiatric History: Denies: Hx Panic Disorder Infectious Disease History: No Infectious Disease History: Denies: Hx Hepatitis, Hx Human Immunodeficiency Virus (HIV), History Other Infectious Disease, Traveled Outside the [place] in Last 30 Days - Family History Known Family History: Negative: Hypertension - Social History Alcohol Use: Occasionally Hx Substance Use: No Substance Use Type: Reports: None Hx Tobacco Use: No Smoking Status (MU): Never Smoked Tobacco Review of Systems Positive: Chest Pain - Pressure Positive: Nausea. Negative: Abdominal Pain, Vomiting, Other - Bloody stool Negative: Arthralgia All Other Systems Reviewed And Are Negative: Yes Physical Exam - Summary Physical Exam Summary: Appearance: Well appearing, no pain distress Skin: warm, dry, reflects adequate perfusion Head/face: normal Eyes: EOMI, ZANE ENT: mucous membranes moist Neck: supple, non-tender Respiratory: CTA, breath sounds present Cardiovascular: RRR, pulses symmetrical Abdomen: non-tender, soft Bowel Sounds: present Musculoskeletal: normal, strength/ROM intact Neuro: normal, sensory motor intact, A&Ox3 Triage Information Reviewed: Yes Vital Signs On Initial Exam: Initial Vitals Temp Pulse Resp BP Pulse Ox 97.2 F 97 16 113/91 98 07/07/18 10:24 07/07/18 10:24 07/07/18 10:24 07/07/18 10:24 07/07/18 10:24 Vital Signs Reviewed: Yes Diagnostics - Vital Signs Vital Signs Temp Pulse Resp BP Pulse Ox 07/07/18 10:24 97.2 F 97 16 113/91 98 - Laboratory Lab Statement: Any lab studies that have been ordered have been reviewed, and results considered in the medical decision making process. - EKG 11:05 Cardiac Rate: NL - 76 bpm EKG Rhythm: Sinus Rhythm ST Segment: Normal Summary of EKG Findings: Nl axis, nl interval Re-Evaluation - Re-Evaluation First Eval Re-Evaluation Time: 11:30 Change: Improved Comment: Pt feels much better after medications. Chest Pain Course/Dx - Course Course Of Treatment: Patient with GI upset and discomfort after course of prednisone. Had been taking ibuprofen as well. Likely medication induced gastritis. This is improved with GI treatment here. EKG is totally normal. Discharged to follow up with primary care physician on GI meds. - Chest Pain Differential Diagnosis/HQI/PQRI: GI Disease, Lower Respiratory Infection, Other : - Pneumonia - Diagnoses Provider Diagnoses: Adverse effects of medication, Acute gastritis Discharge - Sign-Out/Discharge Documenting (check all that apply): Patient Departure - Discharge - Discharge Plan Condition: Improved Disposition: HOME Prescriptions: Famotidine TAB* [Pepcid 20 MG TAB*] 20 mg PO BID PRN #20 tab PRN Reason: stomach discomfort Patient Education Materials: Gastritis (ED) Referrals: Prerna Suggs MD [Primary Care Provider] - Additional Instructions: Avoid alcohol, anti-inflammatory medications, spicy or acidic foods. Maalox or Tums may help if worse. Return if worse, new symptoms, vomiting blood, worse or other concerns. - Billing Disposition and Condition Condition: IMPROVED Disposition: Home - Attestation Statements Document Initiated by Sergibe: Yes Documenting Scribe: Kathy Pruitt Provider For Whom Delfina is Documenting (Include Credential): Fredy Salazar MD Scribe Attestation: Kathy Godwin scribed for Fredy Salazar MD on 07/07/18 at 1157. Scribe Documentation Reviewed: Yes Provider Attestation: The documentation as recorded by the Kathy peterson accurately reflects the service I personally performed and the decisions made by , Fredy Salazar MD
[2018-07-07 11:44] VITALS: BP 121/97
== END 2018-07-07 11:43 | disposition home or self-care (01) ==
LOC: ED 10:19
DX: K29.00 Acute gastritis without bleeding (principal); T38.0X5A Adverse effect of glucocorticoids and synthetic analogues, initial encounter; Y92.9 Unspecified place or not applicable
CPT/HCPCS: 93005; 99282; A9270-GY

== ENCOUNTER 2019-03-19 09:41 | Emergency (ER) | payer OTHER ==
--- NOTE | 2019-03-19 10:54 | ED ---
Lower Extremity - HPI Summary HPI Summary: Pt is a 23 y/o F presenting to the ED with a chief complaint of R knee pain. Patient is reporting 2/10 achy pain located behind the right patella. She states on 02/27/19 she slammed her knee in a car door, and the pain since then has not gone away. She tried ibuprofen as well as ice packs, but nothing alleviates it outside of rest. It is exacerbated by walking and going up stairs , and she notes some paresthesias when she has her legs crossed. She denies edema. - History of Current Complaint Chief Complaint: EDExtremityLower Stated Complaint: KNEE PAIN, A WEEK AGO Time Seen by Provider: 03/19/19 10:00 Hx Obtained From: Patient Hx Last Menstrual Period: 2 WEEKS AGO Mechanism Of Injury: Direct Blow Onset of Pain: Immediate Onset/Duration: Still Present Severity Initially: Moderate Severity Currently: Mild Pain Intensity: 2 Pain Scale Used: 0-10 Numeric Timing: Constant, Lasting Weeks Location: Is Discrete @ - R knee Character Of Pain: Aching Associated Signs And Symptoms: Positive: Knee Pain. Negative: Swelling Aggravating Factor(s): Ambulation, Stairs Alleviating Factor(s): Rest Able to Bear Weight: Yes - Allergies/Home Medications Allergies/Adverse Reactions: Allergies Allergy/AdvReac Type Severity Reaction Status Date / Time escitalopram [From Lexapro] Allergy Unknown Verified 03/19/19 10:01 Reaction Details Home Medications: Home Medications Etonogest/Eth.estradiol (Nf) [Nuvaring Vaginal Ring] 1 implant VAGINAL ONCE [History Confirmed 03/19/19] PMH/Surg Hx/FS Hx/Imm Hx Previously Healthy: Yes Endocrine/Hematology History: Denies: Hx Anticoagulant Therapy, Hx Diabetes, Hx Thyroid Disease Cardiovascular History: Denies: Hx Cardiac Arrest, Hx Hypertension, Hx Pacemaker/ICD Respiratory History: Denies: Hx Asthma, Hx Chronic Obstructive Pulmonary Disease (COPD) GI History: Denies: Hx Cirrhosis, Hx Ulcer History: Denies: Hx Dialysis Sensory History: Denies: Hx Hearing Aid Neurological History: Denies: Hx CVA Psychiatric History: Denies: Hx Panic Disorder Infectious Disease History: No Infectious Disease History: Denies: Hx Hepatitis, Hx Human Immunodeficiency Virus (HIV), History Other Infectious Disease, Traveled Outside the [place] in Last 30 Days - Family History Known Family History: Negative: Hypertension - Social History Alcohol Use: Occasionally Hx Substance Use: No Substance Use Type: Reports: None Hx Tobacco Use: No Smoking Status (MU): Never Smoked Tobacco Review of Systems Positive: Arthralgia - R knee pain. Negative: Edema Positive: Paresthesia All Other Systems Reviewed And Are Negative: Yes Physical Exam - Summary Physical Exam Summary: General: Well appearing, no distress Cardiovascular: Skin is well perfused Pulmonary: No respiratory distress, no tachypnea Abdomen: Non-distended MSK: RLE: no large effusions, soft tissue swelling or discoloration, no crepitus palpated, compartments soft and compressible SILT 2+ PT pulse FROM of joints without pain Hip: no ttp, no pain with log roll Knee: no ttp, mild pain w Flex/ext of knee, no lig laxity Ankle: no ttp, FROM without pain, no instability LLE: no large effusions, soft tissue swelling or discoloration, no crepitus palpated, compartments soft and compressible SILT FROM of joints without pain Skin: Warm, pink, dry Psych: Normal affect Neuro: A&Ox3 Triage Information Reviewed: Yes Vital Signs On Initial Exam: Initial Vitals Temp Pulse Resp BP Pulse Ox 97.4 F 71 16 133/85 100 03/19/19 09:42 03/19/19 09:42 03/19/19 09:42 03/19/19 09:42 03/19/19 09:42 Vital Signs Reviewed: Yes Diagnostics - Vital Signs Vital Signs Temp Pulse Resp BP Pulse Ox 03/19/19 09:42 97.4 F 71 16 133/85 100 - Laboratory Lab Statement: Any lab studies that have been ordered have been reviewed, and results considered in the medical decision making process. - Radiology Knee XR Radiology Interpretation Completed By: Radiologist Summary of Radiographic Findings: Small joint effusion. No fracture is seen. ED physician has reviewed this report. Re-Evaluation - Re-Evaluation First Eval Re-Evaluation Time: 11:01 Comment: Neg XR Lower Extremity Course/Dx - Course Course Of Treatment: 23-year-old female who presents with right knee pain for 3 weeks. Physical examination w/o obvious effusion, or ligamentous laxity. Plan for x-ray and if negative will have her follow-up with orthopedics for an MRI. Patient has been ambulating without distress. She can continue Motrin and ice packs as needed for pain. - Diagnoses Provider Diagnoses: Knee pain Discharge - Sign-Out/Discharge Documenting (check all that apply): Patient Departure Patient Received Moderate/Deep Sedation with Procedure: No - Discharge Plan Condition: Stable Disposition: HOME Patient Education Materials: Knee Pain (ED) Referrals: Prerna Suggs MD [Primary Care Provider] - Raymond Romano MD [Medical Doctor] - Additional Instructions: X-ray did not show any acute fractures. It did show a small effusion which could be secondary to your trauma. Please follow up with orthopedics who will assist you in getting an MRI if needed. Return to the emergency department with any new or worsening symptoms. - Billing Disposition and Condition Condition: STABLE Disposition: Home - Attestation Statements Document Initiated by Sergibe: Yes Documenting Scribe: Isha Chow Provider For Whom Delfina is Documenting (Include Credential): Guru Dasilva MD. Scribe Attestation: IIsha, scribed for Guru Dasilva MD. on 03/19/19 at 1104. Scribe Documentation Reviewed: Yes Provider Attestation: The documentation as recorded by the scribeIsha accurately reflects the service I personally performed and the decisions made by Guru jarquin MD. Status of Scribe Document: Viewed
[2019-03-19 11:13] VITALS: BP 122/62
== END 2019-03-19 11:12 | disposition home or self-care (01) ==
LOC: ED 09:41
DX: M25.561 Pain in right knee (principal); M25.461 Effusion, right knee; Z88.8 Allergy status to other drugs, medicaments and biological substances
CPT/HCPCS: 99282

== ENCOUNTER 2019-08-15 20:31 | Emergency (ER) | payer OTHER ==
--- NOTE | 2019-08-15 21:51 | ED ---
Throat Pain/Nasal Congestion - HPI Summary HPI Summary: 23-year-old female with no significant past medical history isn't emergency department today complaining of sore throat which began at 0200 last evening. She says she has an associated headache, ear pain with absence of cough. She describes her throat pain as a 8 out of 10 stabbing feeling. She believed her symptoms to be due to postnasal drip as she was sick approximately one week ago with a GI bug but she is concerned it may be strep throat as she states she gets it "every year". - History of Current Complaint Chief Complaint: EDThroatPain Time Seen by Provider: 08/15/19 21:22 Hx Obtained From: Patient Onset/Duration: Sudden Onset Severity: Moderate - Allergies/Home Medications Allergies/Adverse Reactions: Allergies Allergy/AdvReac Type Severity Reaction Status Date / Time escitalopram [From Lexapro] Allergy Unknown Verified 08/15/19 20:36 Reaction Details PMH/Surg Hx/FS Hx/Imm Hx Endocrine/Hematology History: Denies: Hx Anticoagulant Therapy, Hx Diabetes, Hx Thyroid Disease Cardiovascular History: Denies: Hx Cardiac Arrest, Hx Hypertension, Hx Pacemaker/ICD Respiratory History: Denies: Hx Asthma, Hx Chronic Obstructive Pulmonary Disease (COPD) GI History: Denies: Hx Cirrhosis, Hx Ulcer History: Denies: Hx Dialysis Sensory History: Denies: Hx Hearing Aid Neurological History: Denies: Hx CVA Psychiatric History: Denies: Hx Panic Disorder Infectious Disease History: No Infectious Disease History: Denies: Hx Hepatitis, Hx Human Immunodeficiency Virus (HIV), History Other Infectious Disease, Traveled Outside the [place] in Last 30 Days - Family History Known Family History: Negative: Hypertension - Social History Alcohol Use: Occasionally Hx Substance Use: No Substance Use Type: Reports: None Hx Tobacco Use: No Smoking Status (MU): Never Smoked Tobacco Review of Systems Constitutional: Negative Eyes: Negative Positive: Sore Throat, Ear Ache Cardiovascular: Negative Respiratory: Negative Gastrointestinal: Negative Genitourinary: Negative Musculoskeletal: Negative Skin: Negative Neurological: Negative Psychological: Normal All Other Systems Reviewed And Are Negative: Yes Physical Exam Triage Information Reviewed: Yes Vital Signs On Initial Exam: Initial Vitals Temp Pulse Resp BP Pulse Ox 97.4 F 110 16 131/95 99 08/15/19 20:33 08/15/19 20:33 08/15/19 20:33 08/15/19 20:33 08/15/19 20:33 Vital Signs Reviewed: Yes Appearance: Positive: Well-Appearing, No Pain Distress, Well-Nourished Skin: Positive: Warm, Skin Color Reflects Adequate Perfusion Eyes: Positive: EOMI, ZANE ENT: Positive: Pharyngeal erythema, TMs normal, Tonsillar swelling, Uvula midline. Negative: Tonsillar exudate, Trismus, Muffled voice, Hoarse voice Respiratory/Lung Sounds: Positive: Clear to Auscultation, Breath Sounds Present Cardiovascular: Positive: RRR, S1, S2 Musculoskeletal: Positive: Strength/ROM Intact Neurological: Positive: Sensory/Motor Intact, Alert, Oriented to Person Place, Time, Normal Gait, Speech Normal Psychiatric: Positive: Normal AVPU Assessment: Alert Procedures - Sedation Patient Received Moderate/Deep Sedation with Procedure: No Diagnostics - Vital Signs Vital Signs Temp Pulse Resp BP Pulse Ox 08/15/19 20:33 97.4 F 110 16 131/95 99 - Laboratory Lab Statement: Any lab studies that have been ordered have been reviewed, and results considered in the medical decision making process. EENT Course/Dx - Course Course Of Treatment: Patient evaluated for sore throat. No uvular deviation or tonsillar exudates however there was tonsillar erythema and swelling. Absence of cough noted. CENTOR criteria 2. Rapid strep test negative. Patient's pharyngitis likely due to virus and will resolve shortly. Patient was given ibuprofen and viscous lidocaine in the ER. Pt to f/u with her PCP in 7 days if symptoms continue. - Differential Diagnoses Differential Diagnoses: Luis Fernando's Angina, Peritonsillar Ulcer, Pharyngitis, Tonsilitis - Diagnoses Provider Diagnoses: Acute pharyngitis Discharge ED - Sign-Out/Discharge Documenting (check all that apply): Patient Departure - Discharge Plan Condition: Stable Disposition: HOME Patient Education Materials: Pharyngitis (ED) Referrals: Prerna Suggs MD [Primary Care Provider] - 7 Days Additional Instructions: There is no evidence of strep throat. Your sore throat is likely due to a virus and will resolve on its own shortly. Please take ibuprofen 600 mg every 6 hours as needed for your pain. Please follow up with your primary care physician in 7 days for further evaluation and management. Please return to the emergency department immediately if you develop any new or worsening symptoms. - Billing Disposition and Condition Condition: STABLE Disposition: Home
[2019-08-15 22:04] LABS: Rapid Strep Molecular Negative (Negative)
[2019-08-15] MEDS ORDERED: Lidocaine 2% VISCOUS* 15 ML UDC PO ONE (22:08)
[2019-08-15] MEDS ORDERED: Ibuprofen TAB* 600 MG PO ONE (22:14)
[2019-08-15 22:42] VITALS: BP 114/76
== END 2019-08-15 22:42 | disposition home or self-care (01) ==
LOC: ED 20:31
DX: J02.9 Acute pharyngitis, unspecified (principal); H92.09 Otalgia, unspecified ear
CPT/HCPCS: 87651; 99282; A9270-GY

== ENCOUNTER 2019-08-20 13:56 | Emergency (ER) | payer OTHER ==
--- OUTSIDE RECORDS SUMMARY | 2019-08-20 14:13 | XMS REPORT | Continuity of Care Document ---
:1995 External Reference #:[id number] Author Name Markie Schulz M.D. (transmitted by agent of provider Genny Quach ) Address [address] , [address] [place] [address] Care Team Providers Name Role Phone Prerna Sgugs MD - Internal Care Team Information [employer] [phone] Medicine Problems Active Problems Provider Date Tension-type headache Onset: Patellar tendonitis Tom Triana MD Onset: 03/21/2019 Contusion of knee Tom Triana MD Onset: 03/21/2019 Social History Type Date Description Comments Sex Unknown Tobacco Use Start: Unknown Never Smoked Cigarettes Smoking Status Reviewed: 08/18/19 Never Smoked Cigarettes ETOH Use Occasionally consumes alcohol Tobacco Use Start: Unknown Patient has never smoked Recreational Drug Use Denies Drug Use Exercise Type/Frequency Exercises regularly Exercise Type/Frequency run, work out Allergies, Adverse Reactions, Alerts Active Allergies Reaction Severity Comments Date Lexapro hives 11/13/2015 Inactive Allergies NKDA 12/18/2013 Medications Description No Active Medications Medications Administered in Office Medication SIG Qnty Indications Ordering Provider Date PPD Injection Bobby Delarosa NP 08/15/2017 PPD Injection Nurse Visit C 08/15/2017 PPD Injection Nurse Visit C 03/08/2015 PPD Injection Nurse Visit C 01/05/2014 Immunizations CPT Code Status Date Vaccine Lot # [id number] Given 05/13/2018 Influenza Virus Vaccine, Quadrivalent, Split, [id number] Preservative Free 73967 Given 06/10/2013 Flu Mist Vaccine, Live For Intranasal Use 92431 Given 11/08/2007 Gardasil (HPV) 99596 Given 11/08/2007 Hepatitis A Vaccine Adult Dosage 01146 Given 07/01/2007 Gardasil (HPV) 08093 Given 04/30/2007 Meningitis MCV4 MenACWY Meningococcal Conjugate Vaccine 42622 Given 04/30/2007 Gardasil (HPV) 58662 Given 04/30/2007 Hepatitis A Vaccine Adult Dosage 94939 Given 11/22/1999 DTaP Vaccine Younger Than 7 72384 Given 11/22/1999 Measles Mumps And Rubella MMR 08677 Given 11/22/1999 Varicella (Chicken Pox) Immunization 14471 Given 12/18/1996 Measles Mumps And Rubella MMR 96111 Given 03/13/1996 Hep B Pediatric/Adolescent 34676 Given 03/13/1996 DTaP Vaccine Younger Than 7 67228 Given 01/01/1996 Hep B Pediatric/Adolescent 32977 Given 01/01/1996 DTaP Vaccine Younger Than 7 57272 Given 1995 Hep B Pediatric/Adolescent 71471 Given 1995 DTaP Vaccine Younger Than 7 Vital Signs Date Vital Result Comment 08/18/2019 2:51pm Height 63.75 inches 5'3.75" Weight 140.00 lb Heart Rate 92 /min BP Systolic Sitting 112 mmHg BP Diastolic Sitting 74 mmHg Body Temperature 98.8 F O2 % BldC Oximetry 99 % BMI (Body Mass Index) 24.2 kg/m2 03/21/2019 9:35am Height 63.75 inches 5'3.75" Weight 143.00 lb Heart Rate 88 /min BP Systolic 106 mmHg BP Diastolic 66 mmHg BMI (Body Mass Index) 24.7 kg/m2 Results Test Acquired Date Facility Test Result H/L Range Note Laboratory test 08/15/2019 [facility] Rapid Strep Negative Negative [address] [place] [address] [phone] 1 [employer] Frame: [id number] Suboptimal collection technique may reduce sensitivity of test. Refer to the [facility] Test Catalog for collection information: [email or web address] As with all diagnostic procedures, the laboratory results obtained should be used in conjunction with other clinical information available to the physician, including confirmation by another method, as applicable. Procedures Description No Information Available Medical Devices Description No Information Available Encounters Type Date Location Provider Dx Diagnosis Office Visit 03/21/2019 [facility] Tomneeraj Triana, S80.01xA Contusion of 9:00a at Cl ROA right knee, initial encounter M76.51 Patellar tendinitis, right knee Assessments Date Code Description Provider 08/18/2019 J02.9 Acute pharyngitis, unspecified Markie Schulz M.D. 03/21/2019 S80.01xA Contusion of right knee, initial encounter Tom Triana MD 03/21/2019 M76.51 Patellar tendinitis, right knee Tom Triana MD Plan of Treatment 08/18/2019 - Markie Schulz M.D.J02.9 Acute pharyngitis, unspecifiedComments: Ongoing pharyngitis/URI/fatigue sx. Continue analgesics as needed and add cough suppressants and decongestants as well. Rest, fluids, and another day off work also advised. Recheck if sx persist/worsen Functional Status Description No Information Available Mental Status Description No Information Available Referrals Description No Information Available
[2019-08-20] MEDS ORDERED: Albuterol HFA INHALER* 8 gm MDI INH ONE (15:12)
[2019-08-20 15:26] VITALS: BP 117/86
--- NOTE | 2019-08-20 17:00 | ED ---
Throat Pain/Nasal Congestion - HPI Summary HPI Summary: This patient is a 23-year-old otherwise healthy female presenting to the ED with sore throat times approximately one week. She was seen in the ED 1 week ago and diagnosed with strep pharyngitis. Since that time she began to feel better, however then lost her voice, over the past 2 days and is now complaining of slight shortness breath. She denies any fevers, sweats, chills. She does endorse fatigue, however this is not extreme. She does have a history of mono many years ago. She is endorsing sore throat, slight cough, shortness of breath without chest pressure or heaviness. She denies any headache. - History of Current Complaint Chief Complaint: EDGeneral Time Seen by Provider: 08/20/19 14:07 Hx Obtained From: Patient Onset/Duration: Sudden Onset Severity: Mild Associated Signs And Symptoms: Positive: Negative - Epiglottits Risk Factors Epiglottis Risk Factors: Negative - Allergies/Home Medications Allergies/Adverse Reactions: Allergies Allergy/AdvReac Type Severity Reaction Status Date / Time escitalopram [From Lexapro] Allergy Unknown Verified 08/15/19 20:36 Reaction Details PMH/Surg Hx/FS Hx/Imm Hx Previously Healthy: Yes Endocrine/Hematology History: Denies: Hx Anticoagulant Therapy, Hx Diabetes, Hx Thyroid Disease Cardiovascular History: Denies: Hx Cardiac Arrest, Hx Hypertension, Hx Pacemaker/ICD Respiratory History: Denies: Hx Asthma, Hx Chronic Obstructive Pulmonary Disease (COPD) GI History: Denies: Hx Cirrhosis, Hx Ulcer History: Denies: Hx Dialysis Sensory History: Denies: Hx Hearing Aid Neurological History: Denies: Hx CVA Psychiatric History: Denies: Hx Panic Disorder - Immunization History Date of Influenza Vaccine: 05/2019 Hx Pertussis Vaccination: No Immunizations Up to Date: Yes Infectious Disease History: No Infectious Disease History: Denies: Hx Hepatitis, Hx Human Immunodeficiency Virus (HIV), History Other Infectious Disease, Traveled Outside the [place] in Last 30 Days - Family History Known Family History: Negative: Hypertension - Social History Occupation: Employed Full-time Lives: With Family Alcohol Use: Occasionally Hx Substance Use: No Substance Use Type: Reports: None Hx Tobacco Use: No Smoking Status (MU): Never Smoked Tobacco Review of Systems Positive: Fatigue. Negative: Fever, Chills, Skin Diaphoresis Negative: Diplopia, Drainage, Erythema Positive: Sore Throat, Nasal Discharge. Negative: Epistaxis, Dental Pain, Ear Ache Negative: Palpitations, Chest Pain Positive: Shortness Of Breath, Cough Positive: no symptoms reported Negative: Arthralgia Skin: Negative Negative: Headache, Weakness, Paresthesia All Other Systems Reviewed And Are Negative: Yes Physical Exam Triage Information Reviewed: Yes Vital Signs On Initial Exam: Initial Vitals Temp Pulse Resp BP Pulse Ox 98.1 F 96 17 118/84 99 08/20/19 14:02 08/20/19 14:02 08/20/19 14:02 08/20/19 14:02 08/20/19 14:02 Vital Signs Reviewed: Yes Appearance: Positive: Well-Appearing, Well-Nourished Skin: Positive: Warm, Skin Color Reflects Adequate Perfusion Head/Face: Positive: Normal Head/Face Inspection Eyes: Positive: EOMI, ZANE, Conjunctiva Clear ENT: Positive: Other - tonsillar stone. Negative: Pharyngeal erythema, Tonsillar swelling Neck: Positive: Supple, Enlarged Nodes @ - cervical anterior Respiratory/Lung Sounds: Positive: Breath Sounds Present Cardiovascular: Positive: Pulses are Symmetrical in both Upper and Lower Extremities Musculoskeletal: Positive: Strength/ROM Intact Neurological: Positive: Speech Normal Psychiatric: Positive: Normal, Affect/Mood Appropriate AVPU Assessment: Alert Procedures - Sedation Patient Received Moderate/Deep Sedation with Procedure: No Diagnostics - Vital Signs Vital Signs Temp Pulse Resp BP Pulse Ox 08/20/19 15:35 98.9 F 102 18 117/86 97 08/20/19 15:14 103 23 117/86 98 08/20/19 15:00 82 21 99 08/20/19 14:44 85 16 115/75 99 08/20/19 14:14 82 18 110/74 97 08/20/19 14:13 80 19 97 08/20/19 14:02 98.1 F 96 17 118/84 99 - Laboratory Lab Statement: Any lab studies that have been ordered have been reviewed, and results considered in the medical decision making process. EENT Course/Dx - Course Course Of Treatment: During his course of treatment, the patient's evaluated for pharyngitis and laryngitis as well as cough and congestion. She states she has been having symptoms since approximately one week, improved a few days ago, but then returned. Denies any fevers, sweats, chills. Symptoms improved somewhat with NyQuil and DayQuil. Physical examination, patient appears well, loss of voice. Patient is afebrile and other vital signs are stable. No cough is noted on exam. CTA, RRR. EOMI/PERRLA. Swollen lymph nodes bilaterally to the cervical anterior. Small tonsillar stone to the left tonsil without pharyngeal or tonsillar erythema. Airway patent. Discussed treatment options with the patient. She is given prednisone for her laryngitis and trace of breath. She is also given Tessalon for cough. Encouraged equal and NyQuil as well as humidifier in the home and so water rinses. She is given 2 days off work. - Differential Diagnoses Differential Diagnoses: URI/Bronchitis - Diagnoses Provider Diagnoses: Laryngitis, Cough Discharge ED - Sign-Out/Discharge Documenting (check all that apply): Patient Departure - Discharge Plan Condition: Stable Disposition: HOME Prescriptions: Benzonatate CAP* [Tessalon CAP*] 100 mg PO TID #21 cap predniSONE TAB* [Deltasone TAB*] 50 mg PO DAILY #5 tab MDD 1 Patient Education Materials: Cold Symptoms (ED) Forms: *Work Release Referrals: Prerna Suggs MD [Primary Care Provider] - Additional Instructions: Humidifier in the home will help with symptoms Drink plenty of fluids Rest as much as possible Dayquil and Nyquil for any symptoms Tessalon up to three times daily as needed for cough Cepacol tabs over the counter for sore throat Salt and honey water rinses Prednisone once daily in the morning x 5 days Off work x 2 days Echinacea and Zicam over the counter - Billing Disposition and Condition Condition: STABLE Disposition: Home
== END 2019-08-20 15:35 | disposition home or self-care (01) ==
LOC: ED 13:56
DX: J04.0 Acute laryngitis (principal); Z88.8 Allergy status to other drugs, medicaments and biological substances
CPT/HCPCS: 99282; A9270-GY